=== PATIENT | male | born 1950 | race Caucasian/White ===

== ENCOUNTER → 2017-12-19 12:57 | Outpatient (POV) | payer MEDICARE, BC, SELFPAY | PROVIDERS: PCP Family Medicine | DX: Z00.00 Encounter for general adult medical examination without abnormal findings (principal) ==

== ENCOUNTER → 2018-04-10 12:58 | Outpatient (POV) | payer MEDICARE, BC, SELFPAY | PROVIDERS: PCP Family Medicine | DX: Z00.00 Encounter for general adult medical examination without abnormal findings (principal) ==

== ENCOUNTER → 2018-08-21 13:31 | Outpatient (POV) | payer MEDICARE, BC, SELFPAY | DX: Z00.00 Encounter for general adult medical examination without abnormal findings (principal) ==

== ENCOUNTER → 2018-11-07 11:21 | Outpatient (CLI) | payer MEDICARE, BC, SELFPAY ==
--- NOTE | 2018-11-07 11:22 | NM_ITS ---
CARDIOLITE SPECT MYOCARDIAL PERFUSION LEXISCAN, REST AND STRESS: History: Obesity, hypertension,, shortness of breath and fatigue Procedure: Patient received a 0.4 mg of intravenous Lexiscan, resting heart rate was 64 bpm resting blood pressure 179/97, with Lexiscan maximum heart rate achieved was 78 bpm which is less than 85% of the maximum predicted heart rate and a blood pressure was 157/78. With Lexiscan patient complained of malaise and stomach discomfort. Electrocardiogram: Resting electrocardiogram showed sinus rhythm nonspecific ST-T changes, with Lexiscan there is less than 1.[address] segment depression noted from the baseline EKG. The EKG portion of the Lexiscan Myoview is nondiagnostic. Cardiac stress and resting SPECT images: Cardiac stress and resting SPECT images were obtained using technetium 99 Myoview 31.9 mCi stress and 10.3 mCi at rest. Gated SPECT further analysis of segmental wall motion and calculation of the ejection fraction also done. Cardiac stress and resting SPECT images show uniform myocardial activity without segmental perfusion abnormality, computer derived ejection fraction is 53% with no regional wall motion abnormality, right ventricle is normal size and contractility. Conclusion: 1. The EKG portion of the Lexiscan Myoview is nondiagnostic. 2. No scintigraphic evidence of reversible ischemia seen, greater derived ejection fraction 53% with no regional wall motion abnormality, right ventricle is normal size and contractility. 3. Normal Lexiscan Myoview study.
--- NOTE | 2018-11-07 11:22 | CA_ITS ---
PROCEDURE: 2-D M-mode and color Doppler study INDICATIONS FOR THE TEST: Chest pain COPD Heart Murmur Tobacco Smoking Palpitations Fatigue Syncope Edema Hypertension+Diabetes Mellitus Rheumatic Fever SOB+EDDY Obesity Hyperlipidemia+ Family History HD Additional History PATIENT INFORMATION HEIGHT: 69 WEIGHT: 271 GENDER: Male B/P: 156/92 2-D/M-MODE INTERPRETATION: 2-D MEASUREMENTS OBSERVED VALUES IN CMS Right Ventricular Dimension (RVDd) 1.8 Interventricular Septum (Thickness)(IVsd) 1.6 Left Ventricular Internal Dimensions(LVIDd) 5.0 Left Ventricular Posterior Wall (Thickness)(LVPWd) 1.2 Aortic Root 3.6 Aortic Cusp Separation 2.0 Left Atrial Dimensions (LAD) 4.1 2D 1. Left atrium is mildly enlarged, left ventricle is normal size, mild concentric left ventricular hypertrophy, visually estimated ejection fraction 55% with no regional wall motion abnormality. 2. The right atrium and right ventricle are normal size and contractility. 3. The aortic valve is thickened and calcified, leaflet continue to display mobility. 4. The mitral and tricuspid valve leaflets are minimally thickened. 5. The pulmonic valve is poorly present. 6. No significant pericardial effusion noted. DOPPLER INTERROGATION: Doppler interrogation of the aortic, mitral and tricuspid valvular presence of severe aortic, mild mitral and tricuspid regurgitation, grade 1 diastolic dysfunction seen with tissue Doppler evidence of raised left atrial pressure. CONCLUSION: 1. Mildly enlarged left atrium, normal left ventricular size, mild concentric left ventricular hypertrophy, visually estimated ejection fraction 55% with no regional wall motion abnormality, grade 1 diastolic dysfunction seen with tissue Doppler evidence of raised left atrial pressure. 2. Thickened and calcified aortic valve without aortic stenosis, there is severe aortic insufficiency. 3. Mild mitral and tricuspid regurgitation 4. No significant pericardial effusion noted.
--- NOTE | 2018-11-07 13:15 | HMH.ITSHM ---
Current Home Medications as stated by this patient Madan Reynolds or service representative. [] triamterene tizanidine rosuvastatin meloxicam losartan amlodipine
== END ==
PROVIDERS: PCP Family Medicine; Visit Provider Internal Medicine
DX: I25.10 Atherosclerotic heart disease of native coronary artery without angina pectoris (principal); I71.2 Thoracic aortic aneurysm, without rupture; R06.02 Shortness of breath; I10 Essential (primary) hypertension
CPT/HCPCS: 78452; 93017; 93306; A9502; J2785

== ENCOUNTER 2019-02-20 12:48 | Outpatient (RCR) | payer MEDICARE, BC, SELFPAY | END 2019-05-26 13:24 | disposition home or self-care (01) | LOC: PT 12:48 | PROVIDERS: Visit Provider Thoracic Surgery (Cardiothoracic Vascular Surgery) | DX: Z95.1 Presence of aortocoronary bypass graft (principal) | CPT/HCPCS: 93798 ==

== ENCOUNTER → 2019-04-14 11:58 | Outpatient (CLI) | payer MEDICARE, BC, SELFPAY ==
--- NOTE | 2019-04-14 12:06 | CT_ITS ---
PROCEDURE: CT ANGIO CHEST CLINCIAL INDICATION: cad Thoracic aortic aneurysm, coronary artery disease COMPARISON: CHESTWO CT chest wo con from 10/05/2018 TECHNIQUE: IV Contrast: 70ML OPTIRAY 350 Axial images obtained with sagittal and coronal reformats. All CT scans at the facility use one or more dose reduction, viz: automated exposure control, ma/kV adjustment per patient size (including targeted exams where dose is matched to indication, i.e. head), or iterative reconstruction technique. FINDINGS: There has been a prior CABG. There is mild dilatation of the ascending thoracic aorta at 4.5 cm transverse and 4.7 cm AP overall not significantly changed. There is mild tortuosity of the thoracic aorta. There is no evidence of aortic dissection. The great vessels are tortuous with no significant stenosis. No evidence pulmonary embolus. No mediastinal or hilar mass or adenopathy. There is a small left pleural effusion. No suspicious pulmonary nodule. There are atelectatic or fibrotic changes in the left upper lobe lingula posteriorly. 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 This is 1 cm distal to the origin. The degree of stenosis is difficult to calculate due to the joyner nature of the band but is felt to be 50 percent or less. 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 There are degenerative changes in the thoracic spine. IMPRESSION: 1. Overall no significant change in the fusiform dilatation of the ascending aorta at 4.5 x 4.7 cm. No evidence of dissection 2. 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 3. Trace left effusion with mild atelectatic change in the left upper lobe 4. There has been an interval median sternotomy with CABG. Dictated by: Tommy Allen MD 04/15/2019 03:24 Electronically signed by Tommy Allen MD in [place] 04/15/2019 03:24
[2019-04-14 12:24] LABS: Blood Urea Nitrogen 13 mg/dL (7-18); Creatinine,Serum 1.13 mg/dL (0.70-1.30); Estimated Glomerular Filt Rate 65 ml/min (>60); GFR (African American) 78 ML/MIN (>60)
--- NOTE | 2019-04-14 12:40 | CA_ITS ---
APPROVED REPORT EXAM: Comprehensive 2D, Doppler, and color-flow Echocardiogram Manufacturing Engineering Intern: Mary Merlos RDCS Ht: 5 ft 9 in Wt: 260lbs BSA: 2.31 BP: 130/78 mmHg Indications: AVR & CABG 12-27-18, HTN, HLD, DM 2D Dimensions LVOT 1.90 cm (M/F) 1.5-2.5 M-Mode Dimensions RVDd 3.20 cm (0.9-2.6) LA Diam 4.70 cm (1.9-4.0) LVDd 6.10 cm (3.5-5.7) Ao Diam 3.80 cm (2.0-3.7) LVDs 4.40 cm (3.5-5.7) AV Cusp 1.00 cm (1.5-2.6) IVSd 1.60 cm (0.6-1.1) PWd 0.90 cm (0.6-1.1) EF (Teich) 53.10% FS 27.90% EDV (Teich) 187.00 mL ESV (Teich) 87.70 mL LV Diastology E/A Ratio 0.90 Aortic Valve LVOT Max 123.00 (70-110 cm/s) LVOT VTI 26.80 cm AoV Peak Emre. 165.00 (50-130 cm/s) AO Peak GR. 11.00 mmHg AO Mean GR. 6.00 (<5 mmHg) AO VTI 34.80 (18-25 cm) RAMONA (VTI) 2.19 (2.5-4.5 cm2) Mitral Valve MV E Max Emre. 69.10 (40-130 cm/s) MV A Velocity 78.00 (40-130 cm/s) E/A Ratio 0.90 Left Ventricle Left atrium is mildly enlarged, left ventricle is normal size, mild concentric left ventricular hypertrophy, visually estimated ejection fraction of 55% with no regional wall motion abnormality, endocardial surfaces are poorly visualized. Grade 1 diastolic dysfunction seen without tissue Doppler evidence of raise left atrial pressure. Right Ventricle Right atrium and right ventricle are mildly enlarged with normal contractility. Aortic Valve There is a bioprosthetic valve noted in the aortic position, the valve is well-seated, the gradient across the prosthetic valve is within normal range, there is no aortic insufficiency. Mitral Valve Mitral inflow velocities within normal range, there is no mitral stenosis, there is mild mitral regurgitation. Tricuspid Valve Tricuspid valve is grossly normal, there is mild tricuspid regurgitation. Tricuspid regurgitation jet velocity is inadequate for calculation of the right ventricular systolic pressure. Pulmonic Valve Pulmonic valve is poorly visualized. Great Vessels Aortic root is normal size. Pericardium No significant pericardial effusion noted. Conclusion 1. Mild biatrial enlargement, normal left ventricular size, mild concentric left ventricular hypertrophy, visually estimated ejection fraction 55% with no regional wall motion abnormality, grade 1 diastolic dysfunction seen without tissue Doppler evidence of raise left atrial pressure. 2. Mildly enlarged right ventricle with normal contractility. 3. Normal functioning bioprosthetic valve in the aortic position without significant aortic outflow obstruction or aortic insufficiency. 4. Mild mitral and tricuspid regurgitation 5. No significant pericardial effusion noted. Electronically signed by : Eamon Flynn, 04/15/2019 05:53:42
== END ==
PROVIDERS: PCP Family Medicine; Visit Provider Nurse Practitioner Family
DX: I25.10 Atherosclerotic heart disease of native coronary artery without angina pectoris (principal); I48.92 Unspecified atrial flutter; I71.2 Thoracic aortic aneurysm, without rupture; R06.00 Dyspnea, unspecified; R06.02 Shortness of breath; Z95.2 Presence of prosthetic heart valve
CPT/HCPCS: 36415; 71275; 82565; 84520; 93306; Q9967

== ENCOUNTER → 2019-04-22 11:18 | Outpatient (CLI) | payer MEDICARE, BC, SELFPAY ==
[2019-04-22 14:31] LABS: Prostate Specific Ag, Diagnost 0.02 ng/mL (0.0-4.0)
== END ==
PROVIDERS: Visit Provider Urology
DX: C61 Malignant neoplasm of prostate (principal)
CPT/HCPCS: 36415; 84153

== ENCOUNTER → 2019-04-23 14:29 | Outpatient (POV) | payer MEDICARE, BC, SELFPAY | DX: Z00.00 Encounter for general adult medical examination without abnormal findings (principal) ==

== ENCOUNTER → 2019-08-27 13:01 | Outpatient (POV) | payer MEDICARE, BC, SELFPAY | PROVIDERS: PCP Family Medicine | DX: Z00.00 Encounter for general adult medical examination without abnormal findings (principal) ==

== ENCOUNTER → 2020-04-05 07:59 | Outpatient (CLI) | payer MEDICARE, BC, SELFPAY ==
--- NOTE | 2020-04-05 08:00 | CA_ITS ---
APPROVED REPORT EXAM: Comprehensive 2D, Doppler, and color-flow Echocardiogram Special Needs Babysitter: Emily Rodriguez RT(R) Ht: 5 ft 10 in Wt: 271lbs BSA: 2.37 BP: 148/84 mmHg Indications: HTN, hyperlipidemia, DM,Hx of CABG, CAD, AV replacement, Aflutter 2D Dimensions LVOT 2.00 cm (M/F) 1.5-2.5 M-Mode Dimensions RVDd 3.91 cm (0.9-2.6) LVDd 5.31 cm (3.5-5.7) LVDs 4.08 cm (3.5-5.7) IVSd 1.70 cm (0.6-1.1) PWd 1.08 cm (0.6-1.1) EF (Teich) 46.00% FS 23.20% EDV (Teich) 135.90 mL ESV (Teich) 73.40 mL LV Diastology E/A Ratio 0.90 Aortic Valve LVOT Max 88.00 (70-110 cm/s) LVOT VTI 19.89 cm Mitral Valve MV A Velocity 70.00 (40-130 cm/s) Left Ventricle Technically difficult study because of the patient factors and poor acoustic windows. Left atrium is mildly enlarged, left ventricle is normal size, mild concentric left ventricular hypertrophy, visually estimated ejection fraction 55% with no regional wall motion abnormality, diastolic parameters are inconclusive. Right Ventricle Right atrium and right ventricle mildly enlarged with normal contractility, Aortic Valve There is bioprosthetic valve noted in the aortic position, the valve is well-seated, there is no aortic outflow obstruction or aortic insufficiency. Mitral Valve Mitral valve leaflets are minimally thickened, there is mild mitral regurgitation. Tricuspid Valve Tricuspid valve grossly normal, there is mild tricuspid regurgitation, tricuspid regurgitation jet velocity is inadequate for calculation of the right ventricular systolic pressure. Pulmonic Valve Pulmonic valve is poorly visualized. Great Vessels Aortic root is normal size. Pericardium No significant pericardial effusion noted. Conclusion 1. Technically difficult study because of the patient factors and poor acoustic windows. Mild biatrial enlargement, normal left ventricular size, mild concentric left ventricular hypertrophy, visually estimated ejection fraction 55% with no regional wall motion abnormality, diastolic parameters are inconclusive. 2. Mildly enlarged right ventricle with normal contractility. 3. Normal functioning prosthetic valve in the aortic position 4. Mild mitral and tricuspid regurgitation. 5. No significant pericardial effusion noted. Electronically signed by : Eamon Flynn, 04/05/2020 21:19:03
[2020-04-05 08:57] LABS: Blood Urea Nitrogen 21 mg/dl (9-20); Estimated Glomerular Filt Rate 55 ml/min (>60); GFR (African American) 66 ML/MIN (>60)
--- NOTE | 2020-04-05 09:14 | CT_ITS ---
PROCEDURE: CT ANGIO CHEST CLINCIAL INDICATION: thoracic aneur F/U THORACIC AORTA ANEURYSM,,NOT HAVING ANY ISSUES COMPARISON: CT CT ANGIO CHEST from 04/14/2019 TECHNIQUE: IV Contrast: 70ML OPTIRAY 350 Axial images obtained with sagittal and coronal reformats. All CT scans at the facility use one or more dose reduction, viz: automated exposure control, ma/kV adjustment per patient size (including targeted exams where dose is matched to indication, i.e. head), or iterative reconstruction technique. FINDINGS: Has been a prior median sternotomy with aortic valve replacement. There remains mild fusiform dilatation of the ascending aorta measuring 4.7 x 4.5 cm AP and transverse dimension not significantly changed. There is no evidence of aortic dissection. There is mild cardiomegaly. No evidence of pericardial effusion. There has been a prior CABG. No mediastinal or hilar mass or adenopathy. Fibrotic changes are present in the left upper lobe.. No lobar consolidation or collapse. There are degenerative changes in the thoracic spine with ankylosis and kyphosis. Upper abdominal images show a right renal cyst at 3 cm incompletely imaged. IMPRESSION: 1. Overall no change in the fusiform dilatation of the ascending aorta at 4.7 x 4.5 cm. No evidence of aortic dissection. 2. Other nonacute findings as described above. Dictated by: Tommy Allen MD 04/06/2020 08:50 Tommy Allen MD in [place] 04/06/2020 08:50
== END ==
PROVIDERS: PCP Family Medicine; Visit Provider Nurse Practitioner Family
DX: I11.9 Hypertensive heart disease without heart failure; I25.10 Atherosclerotic heart disease of native coronary artery without angina pectoris; I48.92 Unspecified atrial flutter; I71.2 Thoracic aortic aneurysm, without rupture; Z95.1 Presence of aortocoronary bypass graft; Z95.2 Presence of prosthetic heart valve
CPT/HCPCS: 36415; 71275; 82565; 84520; 93306; Q9967

== ENCOUNTER → 2020-05-26 13:50 | Outpatient (POV) | payer MEDICARE, BC, SELFPAY | DX: Z00.00 Encounter for general adult medical examination without abnormal findings (principal) ==

== ENCOUNTER → 2020-09-15 13:08 | Outpatient (POV) | payer MEDICARE, BC, SELFPAY | DX: Z00.00 Encounter for general adult medical examination without abnormal findings (principal) ==

== ENCOUNTER → 2020-10-04 09:02 | Outpatient (CLI) | payer MEDICARE, BC, SELFPAY ==
--- NOTE | 2020-10-04 09:40 | CT_ITS ---
PROCEDURE: CT ANGIO CHEST CLINCIAL INDICATION: thoracic aneurysm Follow up No problems per pt COMPARISON: CT CT ANGIO CHEST from 04/05/2020 TECHNIQUE: IV Contrast: 70ML Isovue 370 Axial images obtained with sagittal and coronal reformats. All CT scans at the facility use one or more dose reduction, viz: automated exposure control, ma/kV adjustment per patient size (including targeted exams where dose is matched to indication, i.e. head), or iterative reconstruction technique. FINDINGS: Prior aortic valve replacement. Mild ectasia of the ascending thoracic aorta measuring up to 4.4 cm in maximum transverse dimension and 4.7 cm in AP dimension overall not significantly changed. No evidence of aortic dissection. Prior CABG. No mediastinal or hilar mass. Incidental note made of gynecomastia. Mild pleural thickening is present in the left upper hemithorax laterally with a surgical clip or dense area of calcification at this region. Please correlate with patient's surgical history. This is not significantly changed. Kyphosis noted in the thoracic spine with calcification of the anterior longitudinal ligament. 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 There are few small [place] portal lymph nodes. IMPRESSION: 1. No change in the mild fusiform dilatation of the ascending thoracic aorta measuring up to 4.7 cm. No evidence of dissection. Prior aortic valve replacement. 2. 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 Other nonacute findings as described above Dictated by: Tommy Allen MD 10/05/2020 10:23 Tommy Allen MD in [place] 10/05/2020 10:23
[2020-10-04 09:48] LABS: Chloride 104 mmol/L (98-107); Creatinine,Urine Random 26 mg/dL (Not Estab.)
[2020-10-04 09:49] LABS: Potassium 3.8 mmoL/L (3.5-5.1); Sodium 140 mmol/L (136-145)
[2020-10-04 09:51] LABS: Alanine Aminotransferase 23 U/L (12-78); Anion Gap 9.8 mEq/L (5-15); Aspartate Amino Transferase 27 U/L (17-59); Blood Urea Nitrogen 15 mg/dl (9-20); Carbon Dioxide 30 mmol/L (22.0-30.0); Estimated Glomerular Filt Rate 74 ml/min (>60); GFR (African American) 90 ML/MIN (>60)
[2020-10-04 09:52] LABS: Albumin Level 4.5 g/dl (3.5-5.0); Albumin/Globulin Ratio 1.7 (1.1-1.8); Alkaline Phosphatase 64 U/L (38-126); Bilirubin,Total 0.8 mg/dl (0.2-1.3); Calcium 9.3 mg/dl (8.4-10.2); Chol/HDL Ratio 3.5 (1-3.5); Cholesterol 159 mg/dl (140-200); Globulin 2.6 g/dL (1.3-3.2); Glucose 192 mg/dl (74-100); HDL Cholesterol 46 mg/dl (40-60); Total Protein,Serum 7.1 g/dl (6.3-8.2); Triglycerides 156 mg/dl (30-150); VLDL Cholesterol 31 mg/dL (0-40)
[2020-10-04 10:03] LABS: Direct LDL Cholesterol 78.22 mg/dL (100-129)
[2020-10-04 10:07] LABS: Microalbumin/Creatinine Ratio 737.3; Uric Acid 5.6 mg/dl (3.5-8.5)
[2020-10-04 10:40] LABS: Prostate Specific Ag, Diagnost < 0.064 ng/ml (0.0-4.0)
[2020-10-04 10:57] LABS: Free T4 (Free Thyroxine) 1.01 ng/dl (0.78-2.19)
[2020-10-04 11:33] LABS: Hemoglobin A1C 8.1 % (4.0-6.0)
== END ==
PROVIDERS: PCP Family Medicine; Visit Provider Urology
DX: E78.5 Hyperlipidemia, unspecified (principal); I11.9 Hypertensive heart disease without heart failure; I25.10 Atherosclerotic heart disease of native coronary artery without angina pectoris; I48.92 Unspecified atrial flutter; I71.2 Thoracic aortic aneurysm, without rupture; Z95.1 Presence of aortocoronary bypass graft; Z95.2 Presence of prosthetic heart valve; E11.9 Type 2 diabetes mellitus without complications; E03.9 Hypothyroidism, unspecified; E79.0 Hyperuricemia without signs of inflammatory arthritis and tophaceous disease; Z12.5 Encounter for screening for malignant neoplasm of prostate
CPT/HCPCS: 36415; 71275; 80053; 80061; 82043; 82570; 83036; 84153; 84439; 84443; 84550; Q9967

== ENCOUNTER → 2021-04-18 11:53 | Outpatient (CLI) | payer MEDICARE, BC, SELFPAY ==
[2021-04-18 12:53] LABS: Blood Urea Nitrogen 14 mg/dl (9-20); Estimated Glomerular Filt Rate 74 ml/min (>60); GFR (African American) 90 ML/MIN (>60)
== END ==
PROVIDERS: Visit Provider Internal Medicine
DX: Z01.812 Encounter for preprocedural laboratory examination (principal)
CPT/HCPCS: 36415; 82565; 84520

== ENCOUNTER → 2021-04-19 09:00 | Outpatient (CLI) | payer MEDICARE, BC, SELFPAY ==
--- NOTE | 2021-04-19 09:01 | CT_ITS ---
PROCEDURE: CT ANGIO CHEST CLINCIAL INDICATION: Thoracic aneurysm COMPARISON: CT CT ANGIO CHEST from 10/04/2020 TECHNIQUE: IV Contrast: 70ML Isovue 370 Axial images obtained with sagittal and coronal reformats. All CT scans at the facility use one or more dose reduction, viz: automated exposure control, ma/kV adjustment per patient size (including targeted exams where dose is matched to indication, i.e. head), or iterative reconstruction technique. FINDINGS: HEART AND MEDIASTINAL STRUCTURES: S/p aortic valve replacement. Mild dilatation of the ascending thoracic aorta once again noted. The ascending aorta measures up to 4.5 x 4.7 cm this is overall not significantly changed. No evidence of aortic dissection. No mediastinal or hilar mass evident. There is mild cardiomegaly. LUNGS AND PLEURAL SPACES: 5 there is motion artifact present on the lung windows. No definite lobar consolidation or collapse is evident. Mild pleural thickening in the left upper hemithorax laterally once again noted with the surgical clip or calcification at this area. BONY STRUCTURES: Degenerative changes thoracic spine with ankylosis of the thoracic spine. UPPER ABDOMEN: The right hemidiaphragm is elevated. There are small bilateral renal cysts. ADDITIONAL FINDINGS: Gynecomastia. IMPRESSION: Stable CT appearance of the chest. No change in the mild fusiform dilatation of the ascending aorta at 4.7 x 4.5 cm. No evidence of aortic dissection. Prior median sternotomy with aortic valve replacement and CABG changes. Dictated by: Tommy Allen MD 04/19/2021 13:03 Tommy Allen MD in [place] 04/19/2021 13:03
== END ==
PROVIDERS: PCP Family Medicine; Visit Provider Urology
DX: I11.9 Hypertensive heart disease without heart failure; I25.10 Atherosclerotic heart disease of native coronary artery without angina pectoris; I48.92 Unspecified atrial flutter; I71.2 Thoracic aortic aneurysm, without rupture; Z95.1 Presence of aortocoronary bypass graft; Z95.2 Presence of prosthetic heart valve
CPT/HCPCS: 71275; Q9967

== ENCOUNTER → 2021-10-04 09:49 | Outpatient (CLI) | payer MEDICARE, BC, SELFPAY ==
--- NOTE | 2021-10-04 09:54 | XR_ITS ---
FINAL REPORT CLINICAL HISTORY: RT FOOT PAIN FINDINGS: RIGHT FOOT Three views demonstrate no acute fracture or dislocation. Mild and moderate degenerative changes are present. There are calcaneal spurs. There is calcification in the posterior plantar aponeurosis. IMPRESSION: Degenerative and chronic appearing findings as above. Reviewed, Interpreted and Dictated by Floyd Correa III, MD Transcribed by Kandis Reyes Authenticated by Floyd Correa III, MD on 10/04/2021 11:29:45 AM [facility]
== END ==
PROVIDERS: PCP Family Medicine; Visit Provider Family Medicine
DX: M79.671 Pain in right foot (principal)
CPT/HCPCS: 73630

== ENCOUNTER → 2021-11-21 08:14 | Outpatient (CLI) | payer MEDICARE, BC, SELFPAY ==
[2021-11-21 09:35] LABS: Anion Gap 7.7 mEq/L (5-15); Blood Urea Nitrogen 15 mg/dl (9-20); Calcium 8.6 mg/dl (8.4-10.2); Carbon Dioxide 33 mmol/L (22.0-30.0); Chloride 103 mmol/L (98-107); Estimated Glomerular Filt Rate 66 ml/min (>60); GFR (African American) 80 ML/MIN (>60); Glucose 143 mg/dl (74-100); Potassium 3.7 mmoL/L (3.5-5.1); Sodium 140 mmol/L (136-145)
== END ==
PROVIDERS: Visit Provider Physician Assistant
DX: I11.9 Hypertensive heart disease without heart failure; I25.10 Atherosclerotic heart disease of native coronary artery without angina pectoris; I48.92 Unspecified atrial flutter; I71.2 Thoracic aortic aneurysm, without rupture; Z95.1 Presence of aortocoronary bypass graft; Z95.2 Presence of prosthetic heart valve
CPT/HCPCS: 36415; 80048

== ENCOUNTER 2022-01-08 19:10 | Emergency (ER) | payer MEDICARE, BC, SELFPAY ==
[2022-01-08 19:20] VITALS: BP 146/76; PULSE 71; RESP 16; TEMP 36.8; O2SAT 97; BMI 38.7
--- NOTE | 2022-01-08 19:44 | HMH.EDUTC ---
[facility] [place]ression: [place] Disposition: Home, Self-Care Condition on Discharge: Good Instructions: DI for Laceration Repair-Skin Closure Strips, DI for Laceration Repair-Skin Glue Additional Instructions: keep wound clean and dry do not get hand wet watch for s/s of infection follow up with any concerns Prescriptions: Mupirocin [Bactroban 2% Ointment 22gm tube] 1 applicatio TP BID 10 Days #22 gm Transmission Status: Pending to [id number] Minocycline HCl [Minocycline HCl 100mg Tab*] 100 mg PO BID 10 Days #20 tab Transmission Status: Pending to [id number] Referrals: Paco Pereira MD [Primary Care Provider] - Time of Disposition: 19:51 Medical Decision Making - Dick Inquiry Pt receiving controlled substance: No Vital Signs: 01/08/22 19:20 Temperature 98.3 F Temperature Source Oral Pulse Rate [Right Brachial] 71 Respiratory Rate 16 Blood Pressure [Right Arm] 146/76 H Blood Pressure Mean [Right Arm] 99 Blood Pressure Source [Right Arm] Automatic Cuff Blood Pressure Position [Right Arm] Sitting 02 Sat by Pulse Oximetry 97 Oxygen Delivery Method Room Air Orders (Tests/Meds): ED MEDICATIONS Discontinued Medications Generic Name Dose Route Start Last Admin Trade Name Freq PRN Reason Stop Dose Admin Tetanus/Reduced Diphtheria/Acell Pertussis 0.5 ml 01/08/22 19:41 Tet/Diphth/Pert-Adult 0.5ml Syringe IM 01/08/22 19:42 .[place] [facility] [place] - General Chief complaint: [facility]gent [facility] Stated complaint: [id number] Left finger and arm inj Time Seen by Provider: 01/08/22 19:44 Mode of Arrival: Ambulatory Source of Information: Patient Limitations: No Limitations Description of Symptoms (Recalled from Triage Doc. by RN): PATIENT C/O LACERATION TO LEFT PINKY AND ARM INJURY AFTER FALLING WHILE GETTING OUT OF TRUCK TODAY HEENT Symptoms (Recalled from RN notes): No Resp Symptoms (Recalled from RN notes): No Skin Symptoms (Recalled from RN notes): Yes MS Symptoms (Recalled from RN notes): No Functional Status (Recalled from RN notes): WNL - History of Present Illness Provider Complaint: 71 yr old male presents for laceration to left pink finger and abrasion to rt forearm from tripping while getting out of the truck - Related Data Home Medications Medication Instructions Recorded Confirmed aspirin 81 mg tablet,delayed 81 mg PO DAILY 02/24/19 10/24/21 release metoprolol tartrate 50 mg tablet 50 mg PO BID tab 12/23/19 10/24/21 sulindac 200 mg tablet 200 mg PO BID PRN tab 12/23/19 10/24/21 pioglitazone 15 mg tablet 15 mg PO DAILY 04/12/20 10/24/21 empagliflozin 10 mg tablet 10 mg PO DAILY tab 10/25/20 10/24/21 Previous Rx's Medication Instructions Recorded furosemide 40 mg tablet 40 mg PO DAILY #30 tab 02/24/19 potassium chloride 20 mEq 20 meq PO DAILY #30 tab 02/24/19 tablet,extended release losartan 100 mg tablet 100 mg PO DAILY #90 tab 10/24/21 rosuvastatin 20 mg tablet See Rx Instructions .ROUTE 12/26/21 .COMPLEX #90 tab Minocycline HCl [Minocycline HCl 100 mg PO BID 10 Days #20 tab 01/08/22 100mg Tab*] Mupirocin [Bactroban 2% Ointment 1 applicatio TP BID 10 Days #22 gm 01/08/22 22gm tube] Allergies Allergy/AdvReac Type Severity Reaction Status Date / Time cefdinir Allergy tongue Verified 10/24/21 09:58 swelling - Worker's Comp Is this a Worker's Comp case?: No [facility] History - Hepatitis A Screen Attestation statement:: This patient has been screened for Hepatitis A risk factors. I have reviewed the patient's past medical history: Yes Medical History: Reports:: Coronary Artery Disease, Diabetes Mellitus Type 2, Hyperlipidemia, Hypertension Denies:: Cancer, Diabetes Mellitus Type 1, Internal Pacemaker, Lung Disease, MRSA, Seizures Other Medical History: Denies: Blood Transfusion Reaction Laterality Cases: Bilateral: Tonsillectomy Other Surgeries: Yes: No Previous Surgery,
[2022-01-08 19:48] VITALS: BP 146/76; PULSE 71; RESP 16; TEMP 36.8; O2SAT 97
== END 2022-01-08 19:59 | disposition home or self-care (01) ==
PROVIDERS: Emergency Provider Nurse Practitioner Family; PCP Family Medicine
DX: V58.4XXA Person boarding or alighting a pick-up truck or van injured in noncollision transport accident, initial encounter (principal); S61.217A Laceration without foreign body of left little finger without damage to nail, initial encounter; S51.811A Laceration without foreign body of right forearm, initial encounter; Z23 Encounter for immunization
CPT/HCPCS: 90471; 90715; 99213; G0463

== ENCOUNTER → 2022-04-11 09:05 | Outpatient (CLI) | payer MEDICARE, BC, SELFPAY ==
[2022-04-11 10:27] LABS: Anion Gap 11.7 mEq/L (5-15); Blood Urea Nitrogen 16 mg/dl (9-20); Calcium 8.4 mg/dl (8.4-10.2); Carbon Dioxide 31 mmol/L (22.0-30.0); Chloride 102 mmol/L (98-107); Estimated Glomerular Filt Rate 66 ml/min (>60); GFR (African American) 80 ML/MIN (>60); Glucose 132 mg/dl (74-100); Potassium 3.7 mmoL/L (3.5-5.1); Sodium 141 mmol/L (136-145)
== END ==
PROVIDERS: Physician Assistant; PCP Family Medicine; Visit Provider Internal Medicine
DX: E78.2 Mixed hyperlipidemia (principal); I11.9 Hypertensive heart disease without heart failure; I25.10 Atherosclerotic heart disease of native coronary artery without angina pectoris; I35.1 Nonrheumatic aortic (valve) insufficiency; I48.92 Unspecified atrial flutter; Z95.1 Presence of aortocoronary bypass graft; Z95.2 Presence of prosthetic heart valve; I71.20 Thoracic aortic aneurysm, without rupture, unspecified
CPT/HCPCS: 36415; 80048

== ENCOUNTER → 2022-04-18 08:17 | Outpatient (CLI) | payer MEDICARE, BC, SELFPAY | PROVIDERS: PCP Family Medicine; Visit Provider Physician Assistant | DX: I11.9 Hypertensive heart disease without heart failure; I25.10 Atherosclerotic heart disease of native coronary artery without angina pectoris; I48.92 Unspecified atrial flutter; Z95.1 Presence of aortocoronary bypass graft; Z95.2 Presence of prosthetic heart valve; I71.20 Thoracic aortic aneurysm, without rupture, unspecified | CPT/HCPCS: 36415; 93306 ==

== ENCOUNTER → 2022-04-25 08:20 | Outpatient (CLI) | payer MEDICARE, BC, SELFPAY ==
--- NOTE | 2022-04-25 08:21 | CT_ITS ---
FINAL REPORT TECHNIQUE: Then section axial CT images of the chest were obtained with contrast. Three-D reformatted images were also obtained.This study was performed with techniques to keep radiation doses as low as reasonably achievable (ALARA). Individualized dose reduction techniques using automated exposure control or adjustment of mA and/or kV according to the patient''s size were employed. CLINICAL HISTORY: thoracic aneurysm. 100cc of isovue 370 40 cc saline COMPARISON: 04/19/2021 FINDINGS: The patient is status post median sternotomy. There is no evidence of pulmonary embolism. There is a thoracic ascending aortic aneurysm measuring 4.8 cm and previously measured 4.7 cm. There is no evidence of dissection. There is no evidence of mediastinal or hilar mass or adenopathy. There is no evidence of pulmonary mass or suspicious nodule. There is mild scarring or atelectasis. Limited images of the upper abdomen are unremarkable. IMPRESSION: No evidence of pulmonary embolism. 4.8 cm ascending aortic aneurysm previously measured 4.7 cm. Reviewed, Interpreted and Dictated by Floyd Correa III, MD Transcribed by Lisa Sahu Authenticated and [facility]
== END ==
PROVIDERS: PCP Family Medicine; Visit Provider Physician Assistant
DX: I11.9 Hypertensive heart disease without heart failure; I25.10 Atherosclerotic heart disease of native coronary artery without angina pectoris; I48.92 Unspecified atrial flutter; Z95.1 Presence of aortocoronary bypass graft; Z95.2 Presence of prosthetic heart valve; I71.20 Thoracic aortic aneurysm, without rupture, unspecified
CPT/HCPCS: 71275; Q9967

== ENCOUNTER → 2022-10-02 07:24 | Outpatient (CLI) | payer MEDICARE, BC, SELFPAY ==
[2022-10-02 08:34] LABS: Basophils # 0.1 K/mm3 (0-0.2); Basophils % 1.2 % (0.1-2.0); Eosinophils # 0.4 K/mm3 (0.0-0.4); Eosinophils % 4.7 % (0.1-12.0); Hematocrit 56.1 % (42.0-52.0); Hemoglobin 17.9 g/dL (14.1-18.0); Lymphocytes # 2.1 K/mm3 (0.7-4.5); Lymphocytes % 28.5 % (10-50); Mean Corpuscular HGB Conc 31.9 g/dL (31.8-35.4); Mean Corpuscular Hemoglobin 29.8 pg (27.0-31.2); Mean Corpuscular Volume 93.4 fl (80-94); Monocytes # 0.5 K/mm3 (0.1-1.0); Monocytes % 6.7 % (1.7-9.3); Neutrophils # 4.4 K/mm3 (1.8-7.8); Neutrophils % 58.8 % (37.0-80.0); Platelet Count 177 K/mm3 (142-424); Red Blood Count 6.01 M/mm3 (4.60-6.20); Red Cell Distribution Width 14.4 % (11.5-17.5); White Blood Count 7.4 K/mm3 (4.8-10.8)
[2022-10-02 08:38] LABS: Creatinine,Urine Random 104 mg/dL (Not Estab.)
[2022-10-02 08:58] LABS: Hemoglobin A1C 6.6 % (4.0-6.0)
[2022-10-02 09:15] LABS: Alanine Aminotransferase 18 U/L (12-78); Albumin Level 4.2 g/dl (3.5-5.0); Albumin/Globulin Ratio 1.8 (1.1-1.8); Alkaline Phosphatase 51 U/L (38-126); Aspartate Amino Transferase 22 U/L (17-59); Bilirubin,Total 0.7 mg/dl (0.2-1.3); Blood Urea Nitrogen 18 mg/dl (9-20); Calcium 8.5 mg/dl (8.4-10.2); Carbon Dioxide 31 mmol/L (22.0-30.0); Chloride 103 mmol/L (98-107); Chol/HDL Ratio 3.3 (1-3.5); Cholesterol 162 mg/dl (140-200); Estimated Glomerular Filt Rate 66 ml/min (>60); GFR (African American) 80 ML/MIN (>60); Globulin 2.4 g/dL (1.3-3.2); Glucose 127 mg/dl (74-100); HDL Cholesterol 49 mg/dl (40-60); Sodium 139 mmol/L (136-145); Total Protein,Serum 6.6 g/dl (6.3-8.2); Triglycerides 163 mg/dl (30-150); Uric Acid 4.8 mg/dl (3.5-8.5); VLDL Cholesterol 33 mg/dL (0-40)
[2022-10-02 09:27] LABS: Direct LDL Cholesterol 81.02 mg/dL (100-129)
[2022-10-02 09:31] LABS: Free T4 (Free Thyroxine) 0.89 ng/dl (0.78-2.19)
[2022-10-02 09:45] LABS: Thyroid Stimulating Hormone 5.41 uIU/mL (0.465-4.68)
== END ==
PROVIDERS: PCP Family Medicine; Visit Provider Family Medicine
DX: I10 Essential (primary) hypertension (principal); E11.9 Type 2 diabetes mellitus without complications; E78.2 Mixed hyperlipidemia; E03.9 Hypothyroidism, unspecified; E79.0 Hyperuricemia without signs of inflammatory arthritis and tophaceous disease
CPT/HCPCS: 36415; 80053; 80061; 82043; 82570; 83036; 84439; 84443; 84550; 85025

== ENCOUNTER → 2022-10-24 13:01 | Outpatient (CLI) | payer MEDICARE, BC, SELFPAY | PROVIDERS: PCP Family Medicine; Visit Provider Family Medicine | DX: G47.30 Sleep apnea, unspecified (principal); G47.10 Hypersomnia, unspecified; R06.83 Snoring; E66.01 Morbid (severe) obesity due to excess calories | CPT/HCPCS: G0399 ==

== ENCOUNTER → 2023-05-09 14:15 | Outpatient (CLI) | payer MEDICARE, BC, SELFPAY ==
--- NOTE | 2023-05-09 14:16 | CT_ITS ---
FINAL REPORT TECHNIQUE: Thin section axial images were obtained from the lung apices through the upper abdomen without contrast. This study was performed with techniques to keep radiation doses as low as reasonably achievable (ALARA). Individualized dose reduction techniques using automated exposure control or adjustment of mA and/or kV according to the patient's size were employed. CLINICAL HISTORY: thoracic aneurysm COMPARISON: CTA of the chest from 04/25/2022 FINDINGS: There is a 13 mm hypodense right thyroid nodule present, stable since the prior CT examination. There is no mediastinal, hilar, or axillary lymphadenopathy. No pleural or pericardial effusion. The heart is enlarged. The ascending aorta now measures 5.1 cm in diameter, was 4.8 cm in diameter. The lungs are clear. Limited, unenhanced evaluation of the upper abdomen is without acute abnormality. There is no acute osseous abnormality. IMPRESSION: There has been interval increase in size in the ascending aortic aneurysm, from 4.8 to 5.1 cm in diameter. 13 mm hypodense right thyroid nodule, stable since the prior CT.. Reviewed, Interpreted and Dictated by Tatiana Ray MD Transcribed by Debbie Dee Authenticated and [facility]
--- NOTE | 2023-05-09 14:16 | CA_ITS ---
APPROVED REPORT EXAM: Comprehensive 2D, Doppler, and color-flow Echocardiogram Director Of Industrial Relations: Maria E Sanderson CRT Ht: 5 ft 10 in Wt: 280lbs BSA: 2.41 BP: 144/84 mmHg Indications: AVR, Murmur, Atrial Flutter, Hyperlipidemia, Hypertension/HDD 2D Dimensions LVOT 2.04 cm (M/F) 1.5-2.5 LA Volume 83.70 mL LA Volume Index 33.90 mL/m2 (M/F) 16-34 M-Mode Dimensions RVDd 3.38 cm (0.9-2.6) LA Diam 4.73 cm (1.9-4.0) LVDd 5.03 cm (3.5-5.7) Ao Diam 5.86 cm (2.0-3.7) LVDs 3.68 cm (3.5-5.7) IVSd 2.82 cm (0.6-1.1) PWd 0.98 cm (0.6-1.1) EF (Teich) 52.10% FS 26.80% EDV (Teich) 119.90 mL TAPSE 0.94 (<1.7) ESV (Teich) 57.40 mL LV Diastology E Decel Time 293.00 (160-240 msec) E/A Ratio 0.80 MED E' 9.30 (< 7 cm/sec) MED A' 9.40 cm/s E'/MED E' Ratio 5.53 (>14) LAT E' 4.40 (<10 cm/sec) LAT A' 7.10 cm/s E/LAT E' Ratio 11.68 (>14) Aortic Valve LVOT Max 128.00 (70-110 cm/s) LVOT VTI 25.89 cm AoV Peak Emre. 140.00 (50-130 cm/s) AO Peak GR. 7.90 mmHg AO Mean GR. 4.80 (<5 mmHg) AO VTI 28.13 (18-25 cm) RAMONA (VTI) 3.01 (2.5-4.5 cm2) Mitral Valve MV A Velocity 64.00 (40-130 cm/s) E/A Ratio 0.80 MV Decel. Time 293.00 (160-240 ms) Tricuspid Valve TR P. Velocity 203.00 cm/s RAP Estimate 10.00 mmHg RVSP 26.50 mmHg Left Ventricle The left ventricle is normal size. The left ventricular systolic function is normal. The left ventricular ejection fraction is within the normal range. There is increased LV wall thickness. There is normal LV segmental wall motion. The left ventricular diastolic function is normal. LVEF is 50-55%. Right Ventricle Right ventricle is moderately dilated. The right ventricular systolic function is normal. Atria Left atrium is mildly dilated. Right atrium is mildly dilated. There is no Doppler evidence of interatrial shunt. Aortic Valve s/p AVR. There is no hemodynamically significant aortic valvular stenosis. Peak velocity 1.4 m/s. Mean AV gradient is 4 mmHg. Max AV gradient is 8 mmHg. Trace aortic regurgitation. Mitral Valve The mitral valve leaflets are mildly thickened. No evidence of mitral valve stenosis. Trace mitral regurgitation. Tricuspid Valve The tricuspid valve leaflets are thin and pliable. Trace tricuspid regurgitation. RVSP is normal. Pulmonic Valve The pulmonary valve is normal in structure. Trace pulmonic regurgitation. Great Vessels The aortic root is moderately dilated, measuring 4.8 cm in diameter. The ascending aorta is moderately dilated, measuring 4.6 cm in diameter. IVC is normal in size and collapses >50% with inspiration. Pericardium There is no pericardial effusion. Other Information Study Quality: Fair Conclusion Normal biventricular systolic function. s/p AVR. No evidence of hemodynamically significant aortic valve stenosis. Peak velocity 1.4 m/s. Mean AV gradient is 4 mmHg. Max AV gradient is 8 mmHg. Moderately dilated aortic root (4.8 cm) and ascending aorta (4.7 cm). Compared to prior study from 2021, there are no significant changes to the dimensions of the aortic root or ascending aorta. Electronically signed by : Karma Menjivar MD 05/14/2023 20:49:27
== END ==
PROVIDERS: PCP Family Medicine; Visit Provider Physician Assistant
DX: I25.10 Atherosclerotic heart disease of native coronary artery without angina pectoris (principal); I11.9 Hypertensive heart disease without heart failure; I48.92 Unspecified atrial flutter; R01.1 Cardiac murmur, unspecified; Z95.2 Presence of prosthetic heart valve; I71.20 Thoracic aortic aneurysm, without rupture, unspecified
CPT/HCPCS: 71250; 93306

== ENCOUNTER 2023-10-10 07:33 | Outpatient (CLI) | payer MEDICARE, BC, SELFPAY ==
[2023-10-10 08:31] LABS: Microalbumin/Creatinine Ratio 225.4
[2023-10-10 08:42] LABS: Creatinine,Urine Random 71 mg/dL (Not Estab.); Hemoglobin A1C 5.8 % (4.0-6.0)
[2023-10-10 09:06] LABS: Chloride 106 mmol/L (98-107); Potassium 3.6 mmoL/L (3.5-5.1); Sodium 140 mmol/L (136-145)
[2023-10-10 09:08] LABS: Blood Urea Nitrogen 14 mg/dl (9-20); Estimated Glomerular Filt Rate 73 ml/min (>60); GFR (African American) 89 ML/MIN (>60)
[2023-10-10 09:09] LABS: Alanine Aminotransferase 21 U/L (12-78); Albumin Level 3.7 g/dl (3.5-5.0); Albumin/Globulin Ratio 1.7 (1.1-1.8); Alkaline Phosphatase 50 U/L (38-126); Anion Gap 5.6 mEq/L (5-15); Aspartate Amino Transferase 26 U/L (17-59); Bilirubin,Total 0.7 mg/dl (0.2-1.3); Calcium 9.1 mg/dl (8.4-10.2); Carbon Dioxide 32 mmol/L (22.0-30.0); Chol/HDL Ratio 3.1 (1-3.5); Cholesterol 134 mg/dl (140-200); Globulin 2.2 g/dL (1.3-3.2); Glucose 103 mg/dl (74-100); HDL Cholesterol 43 mg/dl (40-60); Total Protein,Serum 5.9 g/dl (6.3-8.2); Triglycerides 105 mg/dl (30-150); VLDL Cholesterol 21 mg/dL (0-40)
[2023-10-10 09:26] LABS: Free T4 (Free Thyroxine) 0.92 ng/dl (0.78-2.19)
[2023-10-10 09:50] LABS: Uric Acid 3.8 mg/dl (3.5-8.5)
[2023-10-10 10:01] LABS: Direct LDL Cholesterol 65.57 mg/dL (100-129)
[2023-10-10 10:21] LABS: Thyroid Stimulating Hormone 5.88 uIU/mL (0.465-4.68)
== END 2023-10-10 23:59 | disposition home or self-care (01) ==
LOC: LAB 07:34
PROVIDERS: PCP Family Medicine; Visit Provider Family Medicine
DX: E11.9 Type 2 diabetes mellitus without complications (principal); E78.2 Mixed hyperlipidemia; I10 Essential (primary) hypertension; E03.9 Hypothyroidism, unspecified; E79.0 Hyperuricemia without signs of inflammatory arthritis and tophaceous disease
CPT/HCPCS: 36415; 80053; 80061; 82043; 82570; 83036; 84439; 84443; 84550

== ENCOUNTER 2023-11-16 10:05 | Outpatient (CLI) | payer MEDICARE, BC, SELFPAY ==
--- NOTE | 2023-11-16 10:06 | CT_ITS ---
FINAL REPORT TECHNIQUE: Axial images were obtained from the lung apex to the mid abdomen by computed tomography. Coronal reformatted images were obtained. This study was performed with techniques to keep radiation doses as low as reasonably achievable, (ALARA). Individualized dose reduction techniques using automated exposure control or adjustment of mA and/or kV according to the patient''s size were employed. CLINICAL HISTORY: Thoracic aneurysm COMPARISON: May 09, 2023 FINDINGS: Postoperative changes are seen from median sternotomy. A 5.1 cm ascending aortic aneurysm is seen which is stable. The descending thoracic aorta has an unremarkable appearance. Small mediastinal nodes are seen without evidence of adenopathy. No axillary mass or adenopathy is seen.There is no pericardial or pleural effusion. A calcified granuloma is seen in the lateral left upper lobe. No new mass or suspicious pulmonary nodules identified. No localized pulmonary inflammatory process is noted. There is no evidence of pleural effusion. No pneumothorax is identified. The chest wall is intact. Limited images of the upper abdomen are unremarkable. IMPRESSION: Stable 5.1 cm ascending aortic aneurysm. No acute abnormality identified. Authenticated and ERN
== END 2023-11-16 23:59 | disposition home or self-care (01) ==
LOC: RAD 10:06
PROVIDERS: PCP Family Medicine; Visit Provider Physician Assistant
DX: I71.21 Aneurysm of the ascending aorta, without rupture (principal)
CPT/HCPCS: 71250

== ENCOUNTER 2024-08-01 09:02 | Outpatient (CLI) | payer MEDICARE, BC, SELFPAY ==
--- NOTE | 2024-08-01 09:04 | CT_ITS ---
FINAL REPORT TECHNIQUE: Routine axial images were obtained from the lung apices to below the diaphragm following IV contrast administration. Individualized dose reduction techniques using automated exposure control or adjustment of the mA and/or kV according to the patient size were employed. CLINICAL HISTORY: thoracic aneurysm COMPARISON: 11/16/2023 FINDINGS: CT CHEST WITH CONTRAST: The patient has undergone a prior midline sternotomy and there appears to be an aortic valve prosthesis present. There is an ascending aortic aneurysm again noted, measuring 4.8 cm, and stable in appearance when compared to the prior exam of 11/16/2023. The descending thoracic aorta remains unremarkable in size and appearance. No acute lung disease is present. Chronic scarring is present in the lung bases. No pleural or pericardial effusion is seen. No mediastinal or hilar adenopathy or mass lesion is present. IMPRESSION: Ascending aortic aneurysm is again noted, measuring 4.8 cm in size, stable in appearance. No new infiltrate, mass, or nodule is identified. Reviewed, Interpreted and Dictated by Jose A Watts MD Transcribed by Debbie Dee Authenticated and [facility]
[2024-08-01 09:32] LABS: Blood Urea Nitrogen 22 mg/dl (9-20); Estimated Glomerular Filt Rate 66 ml/min (>60); GFR (African American) 80 ML/MIN (>60)
[2024-08-01] MEDS: SODIUM CHLORIDE 0.9% 10ML SYR (RAD ONLY) 10 ML IV (10:16)
[2024-08-01] MEDS: IOPAMIDOL-370 (76%);100ML BOTTLE 75 ML IV (10:16)
== END 2024-08-01 23:59 | disposition home or self-care (01) ==
LOC: RAD 09:04
PROVIDERS: PCP Family Medicine; Visit Provider Physician Assistant
DX: I71.21 Aneurysm of the ascending aorta, without rupture (principal)
CPT/HCPCS: 71260; 82565; 84520; Q9967